=== PATIENT | male | born 1940 | race Caucasian/White ===

== ENCOUNTER → 2018-06-17 07:05 | Outpatient (CLI) | payer MEDICARE, SELFPAY ==
--- NOTE | 2018-06-17 | DI.US.S_ITS ---
PROCEDURE: US ABD AORTA ANEURYSM SCREEN INDICATIONS: AAA SCREENING TECHNIQUE: Real time scanning was performed of the aorta and iliac arteries, with image documentation. COMPARISON: None. FINDINGS: Aorta: Proximal aortic diameter is not well seen. Mid-aorta measures 1.9 cm. Distal aortic diameter is 1.9 cm. Iliac arteries: Right common iliac artery measures 0.9 cm. Left common iliac artery measures 1.1 cm. IMPRESSION: No aneurysmal dilation. Proximal aorta is not well-seen. Dictated by: Lashay Penn M.D. on 06/17/2018 at 13:52 Approved by: Lashay Penn M.D. on 06/17/2018 at 13:53
== END ==
PROVIDERS: PCP Family Medicine; Visit Provider Family Medicine
DX: Z13.6 Encounter for screening for cardiovascular disorders (principal)
CPT/HCPCS: 76706

== ENCOUNTER → 2021-06-19 10:42 | Outpatient (CLI) | payer MEDICARE, SELFPAY ==
[2021-06-19 14:03] LABS: COVID19 -Nasal RAPID Negative (Negative)
== END ==
PROVIDERS: PCP Family Medicine; Visit Provider Family Medicine Sleep Medicine
DX: Z20.822 Contact with and (suspected) exposure to COVID-19 (principal)
CPT/HCPCS: 87635; C9803

== ENCOUNTER 2021-06-20 06:23 | Day surgery (SDC) | payer MEDICARE, SELFPAY ==
[2021-06-20] MEDS: PROPARACAINE 0.5% OPHTH SOL 2 DROPS EYE-OP (07:05)
[2021-06-20] MEDS: CATARACT EYE COMPOUND (10 DROPS/SYRINGE) 3 DROPS EYE-OP (07:10)
[2021-06-20 07:12] VITALS: BP 146/86; PULSE 77; RESP 16; TEMP 36; O2SAT 98; BMI 25.0
--- NOTE | 2021-06-20 07:46 | PM.PREOP ---
Pre-operative Note Interval Note History & Physical reviewed/Exam performed by Physician: Yes Changes to H&P: No Addendum Addendum Note: There are no non surgical alternatives to the patients condition. Deterioration of the patient's condition is expected. Delay may result in more complex future surgery.
--- NOTE | 2021-06-20 07:47 | PM.OP.1 ---
Operative Date/Time/Diagnoses Pre-op diagnosis: Nuclear Cataract Left eye Post-op diagnosis: same Procedure & Clinicians Same procedure as scheduled: Yes Surgeon: Aydin Vasquez Anesthesia Type: MAC +/- and Sedation Operative Notes Procedure in detail: Patient brought to the operating suite. Tetracaine drops placed in the left eye. Patient was prepped and draped in sterile manner. Wire lid speculum was placed in the eye. Betadine drops were placed on the eye. This was irrigated. Lidocaine jelly was placed on the eye. A paracentesis port was created with a side-port blade. 0.1 mL 1% preservative free lidocaine was injected into the anterior chamber. The anterior chamber was deepened with viscoelastic. 2.6 mm keratome was used to create a temporal clear corneal incision. Cystotome and Utrata forceps were used to create continuous tear capsulorrhexis. Balanced salt solution was used to hydro dissect the nucleus. The phacoemulsification handpiece was inserted and the nucleus was removed using the stop and chop technique. The irrigation aspiration handpiece was inserted and the remaining cortex was removed. Anterior chamber was deepened with viscoelastic. An Shepard DFR00V intraocular lens with a power of 18.5 was injected into the capsular bag. Irrigation aspiration handpiece was inserted and the remaining viscoelastic was removed. Incision was hydrated with balanced salt solution and found to be leak free with pressure with Weck-Maggie sponges. 0.1 mL Vigamox injected anterior chamber. 0.3 mL Kenalog 10 mg was injected subconjunctivally. Lid speculum was removed. The patient left the operating room in excellent condition. Complications: none Post-operative Condition: stable Disposition: same day surgery
[2021-06-20] MEDS: HYALURONATE SODIUM 30 MG-10 MG/ML SYRINGES 1 BOX INTRAOCULA (07:59)
[2021-06-20] MEDS: BALANCED SALT IRRIG SOLN NO.2 500 ML, EPINEPHrine 1 MG IRR (08:00)
[2021-06-20] MEDS: PHENYLEPHRINE/LIDOCAINE VIAL (OR) 0.2 ML EYE-OP (08:00)
[2021-06-20] MEDS: MOXIFLOXACIN INJ 4 MG/0.8 ML VIAL 0.5 MG EYE-OP (08:00)
[2021-06-20] MEDS: TRIAMCINOLONE 50 MG/5 ML VIAL INJ (08:00)
[2021-06-20] MEDS: LIDOCAINE 2% (GLYDO) 6 ML GEL TOP (08:01)
[2021-06-20] MEDS: TETRACAINE 0.5% OPHTH DROPS 4 ML 2 DROPS EYE-OP (08:01)
[2021-06-20 08:15] VITALS: BP 129/88; PULSE 74; RESP 18; TEMP 36.3; O2SAT 98
== END 2021-06-20 08:35 | disposition home or self-care (01) ==
PROVIDERS: PCP Family Medicine; Referring Provider Ophthalmology; Visit Provider Ophthalmology
PROC: (CPT 66984; principal; 2021-06-20 07:45)
DX: H25.12 Age-related nuclear cataract, left eye (principal)
CPT/HCPCS: 66984; J0171; J2250; J3301; V2788

== ENCOUNTER → 2021-09-08 09:37 | Outpatient (CLI) | payer MEDICARE, SELFPAY ==
--- NOTE | 2021-09-08 | DI.RAD.S_ITS ---
PROCEDURE: XR FOOT LT MIN 3V INDICATIONS: Pain in left foot TECHNIQUE: 3 views of the foot were acquired. COMPARISON: None. FINDINGS: Bones: No fractures or dislocations. No suspicious bony lesions. Degenerative changes of the interphalangeal joints. Moderate hallux valgus angulation of the great toe. Achilles calcaneal enthesophytes are seen. Soft tissues: No tibiotalar joint effusion. Achilles tendon appears normal. IMPRESSION: 1. Degenerative changes and hallux valgus angulation of the great toe. 2. No acute abnormality. Dictated by: Conner mAato M.D. on 09/08/2021 at 13:37 Approved by: Conner Amato M.D. on 09/08/2021 at 13:46
== END ==
PROVIDERS: PCP Family Medicine; Referring Provider Family Medicine; Visit Provider Family Medicine
DX: M79.672 Pain in left foot (principal); M20.12 Hallux valgus (acquired), left foot
CPT/HCPCS: 73630

== ENCOUNTER → 2021-09-27 09:40 | Outpatient (CLI) | payer MEDICARE, SELFPAY ==
--- NOTE | 2021-09-27 | DI.MRI.S_ITS ---
PROCEDURE: MR SHOULDER RT WO CON INDICATIONS: Unspecified dislocation of shoulder joint TECHNIQUE: Noncontrast oblique coronal T2 fast spin echo with fat saturation, oblique sagittal T1 spin echo and T2 fast spin echo with fat saturation, axial T1 spin echo and T2 fast spin echo with fat saturation through the shoulder. COMPARISON: None. FINDINGS: Image quality: Excellent. Rotator cuff: There is full-thickness rupture of distal supraspinatus and infraspinatus at their insertion on humeral head with up to 4.1 cm medial retraction of torn tendon fibers to the level of glenoid. Distal subscapularis tendinosis and low-grade intrasubstance partial-thickness tear is seen. Sagittal images demonstrate mild to moderate supraspinatus muscle atrophy and mild infraspinatus muscle atrophy. Bones and bursae: No displaced fracture or dislocation. Moderate acromioclavicular joint and glenohumeral joint osteoarthritic changes are noted. Marrow edema is seen involving greater tuberosity of humeral head at distal right rotator cuff tendon insertion. No other area of abnormal marrow signal. Moderate to large subacromial subdeltoid bursal fluid is seen. Capsule and soft tissues: Signal abnormality involving superior anterior labrum at 12 to 1 o'clock position is seen. The long head of the biceps tendinosis and moderate grade intrasubstance partial-thickness tear is seen. The rotator interval appears normal, without fibrosis. The coracohumeral ligament is normal in thickness. Incidentally noted of a well-circumscribed homogeneously fat signal intensity structure with lobulated contour and thin internal septation measures up to 5.7 x 2.5 x 3.1 cm in size posterior to the scapular body and possibly involving deep portion of teres minor muscle. IMPRESSION: 1. Full-thickness rupture of distal supraspinatus and infraspinatus at their insertion on the humeral head with up to 4.1 cm medial retraction of torn tendon fibers to the level of glenoid. Distal subscapularis tendinosis and low-grade intrasubstance partial-thickness tear. Mild to moderate supraspinatus muscle atrophy and mild infraspinatus muscle atrophy. 2. Suggestion of lipoma measures 5.7 x 2.5 x 3.1 cm in size dorsal to the body of scapular and possibly involving deep portion of teres minor muscle. 3. Bony contusion versus nondisplaced fracture involving greater tuberosity of humeral head near rotator cuff tendon insertions. Moderate acromioclavicular joint and glenohumeral joint osteoarthritis. Moderate to large subacromial subdeltoid bursal fluid. 4. Suggestion of subtle superior anterior labral tear at 12 to 1 o'clock position. 5. Tendinosis and moderate grade intrasubstance partial-thickness tear involving proximal intra-articular portion of long head of biceps. Dictated by: Jay Castillo M.D. on 09/27/2021 at 10:36 Approved by: Jay Castillo M.D. on 09/27/2021 at 10:41
== END ==
PROVIDERS: PCP Family Medicine; Referring Provider Family Medicine; Visit Provider Family Medicine
DX: M75.121 Complete rotator cuff tear or rupture of right shoulder, not specified as traumatic (principal); S46.111A Strain of muscle, fascia and tendon of long head of biceps, right arm, initial encounter; M19.011 Primary osteoarthritis, right shoulder
CPT/HCPCS: 73221